=== PATIENT | male | born 1975 | race American Indian/Alaskan Native ===

== ENCOUNTER 2019-11-20 08:28 | Emergency (ER) | payer BC ==
[2019-11-20 09:04] VITALS: BP 163/93
[2019-11-20] MEDS ORDERED: IBUPROFEN 800 MG TAB PO ONE (10:42)
--- NOTE | 2019-11-20 10:42 | Emergency Department Report ---
Minor Respiratory - HPI Chief Complaint: Upper Respiratory Infection Stated Complaint: FLU SYM/FEVER Time Seen by Provider: 11/20/19 10:42 ED Review of Systems ROS: Stated complaint: FLU SYM/FEVER Other details as noted in HPI Comment: All other systems reviewed and negative ED Past Medical Hx - Past Medical History Previous Medical History?: No - Surgical History Past Surgical History?: No - Family History Family history: no significant - Social History Smoking Status: Never Smoker Substance Use Type: None - Medications Home Medications: Home Medications Medication Instructions Recorded Confirmed Last Taken Type Azithromycin [Zithromax Z-ELISA] 250 mg PO DAILY #6 tablet 11/20/19 Unknown Rx Benzonatate [Tessalon Perles] 100 mg PO Q12H PRN #20 capsule 11/20/19 Unknown Rx Fluticasone [Flonase] 1 spray NS QDAY #1 bottle 11/20/19 Unknown Rx predniSONE [Deltasone] 20 mg PO DAILY #5 tablet 11/20/19 Unknown Rx Minor Respiratory Exam - Exam General: Vital signs noted. No distress. Alert and acting appropriately. HEENT: Yes Moist Mucous Membranes, No Pharyngeal Erythema, No Pharyngeal Exudates, No Rhinorrhea, No Conjuctival Injection, No Frontal Tenderness, No Maxillary Tenderness Ear: Neither TM Bulge, Neither TM Erythema, Neither EAC Pain, Neither EAC Discharge Neck: Yes Supple, No Adenopathy Lungs: Yes Good Air Exchange, No Wheezes, No Ronchi, No Stridor, No Cough, No Labored Respirations, No Retractions, No Use of Accessory Muscles, No Other Abnormal Lung Sounds Heart: Yes Regular, No Murmur Abdomen: Yes Normal Bowel Sounds, No Tenderness, No Peritoneal Signs Skin: No Rash, No Edema Neurologic: Alert and oriented, no deficits. Musculoskeletal: Unremarkable. ED Course Vital Signs 11/20/19 09:03 Temperature 99.6 F Pulse Rate 116 H Respiratory 21 Rate Blood Pressure 163/93 O2 Sat by Pulse 95 Oximetry ED Medical Decision Making - Radiology Data Radiology results: report reviewed, image reviewed Critical care attestation.: If time is entered above; I have spent that time in minutes in the direct care of this critically ill patient, excluding procedure time. ED Disposition Clinical Impression: URTI (acute upper respiratory infection) Disposition: TO HOME OR SELFCARE Is pt being admited?: No Does the pt Need Aspirin: No Condition: Stable Instructions: Upper Respiratory Infection (ED) Additional Instructions: hydrate well with water meds as ordered today motrin or tylenol for pain or fever diet as tolerated follow up with PCP Sunday to be sure you are getting better referral below Referrals: SEAN VASQUEZ MD [Staff Physician] - 3-5 Days Time of Disposition: 11:56
--- NOTE | 2019-11-20 12:06 | XRay Report ---
CHEST 2 VIEWS INDICATION / CLINICAL INFORMATION: fever, cough. COMPARISON: None available. FINDINGS: SUPPORT DEVICES: None. HEART / MEDIASTINUM: No significant abnormality. LUNGS / PLEURA: No significant pulmonary or pleural abnormality. .No pneumothorax. ADDITIONAL FINDINGS: No significant additional findings. IMPRESSION: 1. No acute findings. Signer Name: Wisam Naylor MD Signed: 11/20/2019 12:01 PM Workstation Name: [id number]
== END 2019-11-20 12:51 | disposition home or self-care (01) ==
LOC: ED 08:28
DX: J06.9 Acute upper respiratory infection, unspecified (principal); Z79.899 Other long term (current) drug therapy
CPT/HCPCS: 71046